=== PATIENT | male | born 1995 | race Caucasian/White ===

== ENCOUNTER 2022-03-11 13:24 | Emergency (ER) | payer BC, SELFPAY ==
--- NOTE | ~2022-03-11 | XR_ITS ---
EXAM: XR lumbar spine 2-3V DATE: 03/11/2022 13:57 HISTORY: low back pain/no trauma/pain radiates down left leg . COMPARISON: None available. FINDINGS: 5 nonrib-bearing lumbar-type vertebral bodies. Pedicles intact. Normal vertebral body alig nment. Vertebral body heights preserved. Lumbar straightening. Mild disc space narrowing at L4-5. Mod erate disc space narrowing at L5-S1. Normal facets and posterior elements. No fracture or dislocation . IMPRESSION: Mild-moderate degenerative disc disease in the lower lumbar spine, detailed above. Reviewed, dictated and finalized at location K.
[2022-03-11 13:37] VITALS: BP 132/83; PULSE 107; RESP 18; TEMP 37.6; O2SAT 100
--- NOTE | 2022-03-11 13:43 | ED_ITS ---
HPI - Back Pain/Injury General Chief Complaint: Back Pain/Injury Stated Complaint: back pain History of Present Illness HPI Narrative: This is a 27 year old male that has chronic back pain that has been going on for years. According to patient at rest pain is a 3 and go up as high as a 6. Patient denies really taking anything for the pain but occassionally may take a Ibuprofen. NO real injury for say possibly when he picked up son he is not for sure what really happened . Patient states laying down, and sitting hurts pain shoots down his left side and he notices when he stands up it helps more than anything. Patient informs me he is going to a chiropractor and he does not have xrays and he would like to make sure there is nothing major going on before he has him working on his back. Related Data Allergies Allergy/AdvReac Type Severity Reaction Status Date / Time amoxicillin [From Augmentin] Allergy Unknown Verified 03/11/22 13:43 clavulanic acid Allergy Unknown Verified 03/11/22 13:43 [From Augmentin] Review of Systems Review of Systems: back pain on the left side All systems reviewed & are u nremarkable except as noted in HPI and below Exam Narrative: GENERAL:Well-appearing, well-nourished, and in no acute distress. HEAD:Normocephalic, atraumatic. EYES: PERRLA and EOMI. ENT: Nares clear, no rhinorrhea or epistaxis. Mucous membranes moist. NECK: Supple. CHEST: . No respiratory distress. HEART: Regular rate and rhythm. Normal peripheral pulses. ABDOMEN: Soft, nontender, nondistended EXTREMITIES: Normal range of motion. No edema. SKIN: Warm, dry, no rash. NEURO: No focal deficits. Alert and oriented x3. Patient denies any incontinence or any defecation on self Course Course Emergency Course: Xray show mild to moderate disc changes in the lower lumbar no fracture. Level of Care: Express Care Visit Vital Signs Vital signs: Vital Signs Temperature 99.6 F 03/11/22 13:37 Pulse Rate 107 H 03/11/22 13:37 Respiratory Rate 18 03/11/22 13:37 Blood Pressure 132/83 03/11/22 13:37 Pulse Oximetry 100 03/11/22 13:37 Oxygen Delivery Room Air 03/11/22 13:37 Temperature 99.6 F 03/11/22 13:37 Pulse Rate 107 H 03/11/22 13:37 Respiratory Rate 18 03/11/22 13:37 Blood Pressure 132/83 03/11/22 13:37 Pulse Oximetry 100 03/11/22 13:37 Oxygen Delivery Room Air 03/11/22 13:37 Discharge Plan Discharge Clinical Impression: Sciatica Patient Disposition: Home, Self-Care Condition: Stable Instructions: Antibiotic Form, Sciatica (ED), Lower Back Exercises (ED) Prescriptions: New ibuprofen 800 mg tablet 800 mg PO TID PRN (Reason: pain) Qty: 20 0RF cyclobenzaprine 5 mg tablet 5 mg PO TID PRN (Reason: muscle spasm) Qty: 14 0RF methylprednisolone [Medrol (Cornel)] 4 mg tablets,dose pack See Rx Instructions .ROUTE .COMPLEX Qty: 21 0RF Rx Instructions: orally per package directions Follow-up/Referrals: PHYSICIAN,[employer] [Primary Care Provider] - Stand Alone Forms: Work/School Release IP Time of Disposition: 14:27
== END 2022-03-11 14:30 | disposition home or self-care (01) ==
PROVIDERS: Emergency Provider Nurse Practitioner Family
DX: M54.32 Sciatica, left side (principal)
CPT/HCPCS: 72100; 99213; G0463

== ENCOUNTER 2022-10-17 11:23 | Emergency (ER) | payer BC, SELFPAY ==
[2022-10-17 11:27] VITALS: BP 140/72; PULSE 72; RESP 18; TEMP 36.6; O2SAT 100
--- NOTE | 2022-10-17 11:45 | ED.BACK ---
HPI - Back Pain/Injury General Chief Complaint: Back Pain/Injury Stated Complaint: Lower Back Pain Time Seen by Provider: 10/17/22 11:35 Source: patient and RN notes reviewed Mode of arrival: ambulatory Limitations: no limitations History of Present Illness HPI Narrative: Patient presents today complaining of exacerbation of his chronic low back pain for the past 2 weeks. Denies any trauma or recent injury. Reports history of degenerative disc disease. Pain is primarily midline with very occasional radiation to the left leg. Denies numbness or tingling in the legs or genitals. Denies any loss of bowel or bladder control. He currently rates his pain 5/10 and has been taking ibuprofen occasionally without relief. Patient has an appointment to initiate care with a new PCP on November 27. Related Data Allergies Allergy/AdvReac Type Severity Reaction Status Date / Time amoxicillin [From Augmentin] AdvReac Mild Hives Verified 10/17/22 11:26 clavulanic acid AdvReac Mild Hives Verified 10/17/22 11:26 [From Augmentin] Review of Systems Review of Systems: CONSTITUTIONAL: Denies body aches, fever, chills, or sweats. EYES: Denies visual changes, redness, or discharge. ENT: Denies rhinorrhea, congestion, sore throat, or otalgia. CARDIOVASCULAR: Denies chest pain, palpitations, or edema. RESPIRATORY: Denies cough or dyspnea. GASTROINTESTINAL: Denies abdominal pain, nausea, vomiting, or diarrhea. GENITOURINARY: Denies dysuria or hematuria. SKIN: Denies rash, itching, or wounds. MUSCULOSKELETAL: Denies joint pain, or myalgia.+ low back pain NEUROLOGIC: Denies headache, numbness, tingling, or weakness. PSYCH: Denies depression or anxiety. PMFSH Comments At time of signature, I have reviewed and agree with nursing past medical, surgical, social and family history unless otherwise noted. Please see nursing chart for further information. There is no relevant family history pertinent to the presenting complaint Exam Narrative: GENERAL: Well-appearing, well-nourished, and in no acute distress. HEAD: Normocephalic, atraumatic. EYES: EOMI. No redness or drainage. Conjunctivae normal. ENT: Mucous membranes pink and moist. NECK: Normal AROM. CHEST: No respiratory distress. MUSCULOSKELETAL: No bony tenderness of the spine. Patient localizes pain in the lower lumbar. No tenderness to the bilateral paraspinal muscles. Distal sensation intact. Saddle sensation intact. Capillary refill normal. Pedal pulses normal. Dorsiflexion and plantar flexion equal and strong against resistance. No tenderness of the SI joints. EXTREMITIES: Normal range of motion. No edema. SKIN: Warm, dry, no rash. Capillary refill normal. Normal skin turgor. NEURO: No focal deficits. Alert and oriented x3. Gait steady. PSYCH: Normal affect. No signs of depression or anxiety. Course Course Level of Care: Express Care Visit Vital Signs Vital signs: Vital Signs Temperature 97.8 F 10/17/22 11:27 Pulse Rate 72 10/17/22 11:27 Respiratory Rate 18 10/17/22 11:27 Blood Pressure 140/72 10/17/22 11:27 Pulse Oximetry 100 10/17/22 11:27 Oxygen Delivery Room Air 10/17/22 11:27 Temperature 97.8 F 10/17/22 11:27 Pulse Rate 72 10/17/22 11:27 Respiratory Rate 18 10/17/22 11:27 Blood Pressure 140/72 10/17/22 11:27 Pulse Oximetry 100 10/17/22 11:27 Oxygen Delivery Room Air 10/17/22 11:27 Reviewed. Pt has been instructed to follow up with his PCP regarding his elevated blood pressure today. MDM - Back Pain/Injury MDM Narrative Medical decision making narrative: Patient states last time he was here he was prescribed some steroids for his pain, which helped greatly and would like this again. Will prescribe prednisone. Offered a prescription for Flexeril, but patient declined. Anticipatory guidance given. Differential Diagnosis Differential diagnosis: Likely lumbar radiculopathy, sciatica, strain of lumbar region and othe
== END 2022-10-17 11:54 | disposition home or self-care (01) ==
PROVIDERS: Emergency Provider Nurse Practitioner
DX: M54.50 Low back pain, unspecified (principal)
CPT/HCPCS: 99213; G0463

== ENCOUNTER 2022-11-09 19:21 | Emergency (ER) | payer BC, SELFPAY ==
--- NOTE | ~2022-11-09 | XR_ITS ---
EXAM: XR hand LT min 3V DATE: 11/09/2022 20:10 HISTORY: Thumb laceration . COMPARISON: None available. FINDINGS: Normal mineralization. No fracture or dislocation. No lytic or blastic lesion. Joint space s are maintained. No erosion or periosteal change. Soft tissues within normal limits. IMPRESSION: No acute osseous finding in the left hand. Reviewed, dictated and finalized at location K.
[2022-11-09 19:29] VITALS: BP 132/96; PULSE 87; RESP 18; TEMP 36.6; O2SAT 100
--- NOTE | 2022-11-09 19:59 | ED.WOUNDLAC ---
HPI - Wound/Laceration General Chief Complaint: Wound/Laceration Stated Complaint: l thumb lac Time Seen by Provider: 11/09/22 19:51 History of Present Illness HPI narrative: This is a 27-year-old male, who denies significant past medical history, presenting to the emergency department after a laceration to the left thumb. 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 A knife on his work desk slipped, cutting him through the left thumb. He denies injury elsewhere and denies pain at this time. Related Data Home Medications Medication Instructions Recorded Confirmed No Home Medications 11/09/22 11/09/22 Allergies Allergy/AdvReac Type Severity Reaction Status Date / Time amoxicillin [From Augmentin] AdvReac Mild Hives Verified 11/09/22 19:31 clavulanic acid AdvReac Mild Hives Verified 11/09/22 19:31 [From Augmentin] Review of Systems Review of Systems: CONSTITUTIONAL: Denies fever, chills, or sweats. CARDIOVASCULAR: Denies chest pain, palpitations, or edema. RESPIRATORY: Denies cough or dyspnea. SKIN: Denies rash or itching. MUSCULOSKELETAL: Laceration of the left thumb denies back pain, joint pain, or myalgia. NEUROLOGIC: Denies headache, numbness, dizziness, or weakness. PSYCHIATRIC: Denies anxiety or depression. [facility] Social History Social History (Updated 11/09/22 @ 20:01 by Frederick Busch MD) Smoking status: Never smoker Alcohol intake: current Drinks per week: 1 Substance use: never Exam Narrative: GENERAL: Well-developed, well-nourished, and in no acute distress. HEAD: Normocephalic, atraumatic. EYES: PERRLA and EOMI. CHEST: Clear to auscultation. No respiratory distress. No wheezes rales or rhonchi HEART: Regular rate and rhythm. No murmur heard. Normal peripheral pulses. ABDOMEN: Soft, nontender, nondistended, normal active bowel sounds. EXTREMITIES: An approximate 4 cm laceration is noted extending from the distal left thumb to just before the nail matrix involves nailbed. Normal range of motion. No edema. SKIN: Warm, dry, no rash. NEURO: No focal deficits. Alert and oriented x3. PSYCH: Normal mood and affect. Course Course Emergency Course: 21:00 -x-ray not concerning for fracture or retained foreign object. The patient's tetanus vaccination was updated. His laceration was closed. Please see procedure note. Discussed return and emergency precautions including signs/symptoms of wound infection and neurovascular compromise. In 7 to 10 days for suture removal. Vital Signs Vital signs: Vital Signs Temperature 97.8 F 11/09/22 19:29 Pulse Rate 87 11/09/22 19:29 Respiratory Rate 18 11/09/22 19:29 Blood Pressure 132/96 H 11/09/22 19:29 Pulse Oximetry 100 11/09/22 19:29 Oxygen Delivery Room Air 11/09/22 19:29 Temperature 97.8 F 11/09/22 19:29 Pulse Rate 87 11/09/22 19:29 Respiratory Rate 18 11/09/22 19:29 Blood Pressure 132/96 H 11/09/22 19:29 Pulse Oximetry 100 11/09/22 19:29 Oxygen Delivery Room Air 11/09/22 19:29 Procedures Laceration Laceration 1: Date: 11/09/22 Time: 21:00 Site: hand Side (If applicable): left Size (cm): 4 Description: linear, clean and other (involves nail) Depth: simple, single layer (involves nail) Amount of anesthesia used (mL): 4 Pre-repair: wound explored and irrigated ====== Skin Level ====== Skin layer closed with: nylon Size (cm): 4-0 Number of sutures: 3 Technique: simple, interrupted ====== Subcutaneous Layer ====== ====== Muscle Layer ====== ====== Tendon Layer ====== Nerve Block Nerve Block 1: Nerve block date: 11/09/22 Nerve block time: 20:55 Time out performed: Yes Local Anesthetic: lidocaine 2% Amount of anesthesia used (mL): 4 Side: left Nerve Blocks: digital (Left 1st digit) Procedure Successful: Yes Patient Tolerated P
[2022-11-09] MEDS: TETANUS,DIPHTHERIA,AC PERTUSSIS ADULT (0.5 ML) BOOSTRIX IM (20:14)
[2022-11-09 21:36] VITALS: BP 133/72; PULSE 81; RESP 16; TEMP 37; O2SAT 98
== END 2022-11-09 21:37 | disposition home or self-care (01) ==
PROVIDERS: Emergency Provider Preventive Medicine Aerospace Medicine
DX: S61.012A Laceration without foreign body of left thumb without damage to nail, initial encounter (principal); Z23 Encounter for immunization; W26.0XXA Contact with knife, initial encounter
CPT/HCPCS: 12002; 73130; 90471; 90715; 99283